=== PATIENT | male | born 1970 | race Native Hawaiian/Other Pacific Islander ===

== ENCOUNTER 2019-12-07 15:21 | Emergency (ER) | payer SELFPAY ==
[2019-12-07 18:53] LABS: Bacteria,Urine 1+ /HPF (Negative); Bilirubin,Urine NEG (Negative); Blood,Urine NEG (Negative); Color,Urine Straw (Yellow); Protein,Urine <15 mg/dL mg/dL (Negative); Urobilinogen,Urine < 2.0 mg/dL (<2.0); WBC,Urine < 1.0 /HPF (0.0-6.0)
[2019-12-07 18:59] LABS: Hematocrit 45.4 % (35.5-45.6); Mean Corpuscular HGB Conc 35 % (32-34); Mean Corpuscular Volume 88 fl (84-94); Platelet Count 237 K/mm3 (140-440); Red Blood Count 5.16 M/mm3 (3.65-5.03); Red Cell Distribution Width 13.1 % (13.2-15.2)
[2019-12-07 19:20] LABS: BUN/Creatinine Ratio 23; Blood Urea Nitrogen 16 mg/dL (9-20); Calcium 9.7 mg/dL (8.4-10.2); Hemolysis Index 21
[2019-12-07] MEDS ORDERED: SODIUM CHLORIDE 0.9% 1000 ML 1,000 ML IV ONE (19:21)
[2019-12-07] MEDS ORDERED: INSULIN REGULAR, HUMAN 100 UNITS/1 ML IV ONE (19:21)
--- NOTE | 2019-12-07 20:08 | Emergency Department Report ---
ED General Adult HPI - General Chief complaint: Pain General Stated complaint: BLOOD SUGAR HIGH Time Seen by Provider: 12/07/19 19:20 Source: patient Mode of arrival: Ambulatory Limitations: Language Barrier - History of Present Illness Initial comments: Mr. Sanchez presents for elevated BG states out of metformin for past week. He complains of some generalized malaise, bodyaches, intermittent weakness. there is no nausea /vomiting ,no chest pain ,no shortness of breath. Onset/Timin -: days(s) Location: upper extremity, lower extremity Radiation: non-radiation Severity scale (0 -10): 4 Quality: aching, other (tingling ) Consistency: intermittent Improves with: none Worsens with: other (activity ) Associated Symptoms: malaise, weakness Treatments Prior to Arrival: none - Related Data Previous Rx's Medication Instructions Recorded Last Taken Type Metformin HCl [metFORMIN] 1,000 mg PO BID #60 tablet 12/07/19 Unknown Rx Allergies Allergy/AdvReac Type Severity Reaction Status Date / Time No Known Allergies Allergy Unverified 12/07/19 15:26 ED Review of Systems ROS: Stated complaint: BLOOD SUGAR HIGH Other details as noted in HPI Constitutional: denies: chills, fever Eyes: denies: eye pain, eye discharge, vision change ENT: throat pain Respiratory: denies: cough, shortness of breath, wheezing Cardiovascular: denies: chest pain, palpitations Endocrine: no symptoms reported Gastrointestinal: denies: abdominal pain, nausea, vomiting, diarrhea Genitourinary: denies: urgency, dysuria, frequency, hematuria, discharge Musculoskeletal: other (bodyache malaise ). denies: back pain, joint swelling, arthralgia Skin: denies: rash, lesions Neurological: denies: headache, weakness, paresthesias Psychiatric: denies: anxiety, depression Hematological/Lymphatic: denies: easy bleeding, easy bruising ED Past Medical Hx - Past Medical History Previous Medical History?: Yes Hx Diabetes: Yes - Surgical History Past Surgical History?: No - Social History Smoking Status: Current Every Day Smoker Substance Use Type: Alcohol - Medications Home Medications: Home Medications Medication Instructions Recorded Confirmed Last Taken Type Metformin HCl [metFORMIN] 1,000 mg PO BID #60 tablet 12/07/19 Unknown Rx ED Physical Exam - General Limitations: Language Barrier General appearance: alert, in no apparent distress - Head Head exam: Present: atraumatic, normocephalic - Eye Eye exam: Present: normal appearance, PERRL, EOMI Pupils: Present: normal accommodation - ENT ENT exam: Present: normal orophraynx, mucous membranes moist, TM's normal bilaterally, normal external ear exam - Neck Neck exam: Present: normal inspection, full ROM. Absent: tenderness, lymphadenopathy - Respiratory Respiratory exam: Present: normal lung sounds bilaterally. Absent: respiratory distress, wheezes, stridor, chest wall tenderness - Cardiovascular Cardiovascular Exam: Present: regular rate, normal rhythm, normal heart sounds. Absent: systolic murmur, diastolic murmur, rubs, gallop - GI/Abdominal GI/Abdominal exam: Present: soft, normal bowel sounds. Absent: distended, tenderness, guarding, rebound, rigid, bruit, hernia - Rectal Rectal exam: Present: deferred - Extremities Exam Extremities exam: Present: normal inspection, full ROM, normal capillary refill. Absent: tenderness, pedal edema - Back Exam Back exam: Present: normal inspection, full ROM. Absent: tenderness, CVA tenderness (R), CVA tenderness (L) - Neurological Exam Neurological exam: Present: alert, oriented X3, CN II-XII intact, normal gait, reflexes normal. Absent: motor sensory deficit - Psychiatric Psychiatric exam: Present: normal affect, normal mood - Skin Skin exam: Present: warm, dry, intact, normal color. Absent: rash ED Course Vital Signs 12/07/19 18:06 Temperature 98.4 F Pulse Rate 87 Respiratory 18 Rate Blood Pressure 124/85 O2 Sat by Pulse 99 Oximetry ED Medical Decision Making - Lab Data Result diagrams: 12/07/19 18:40 12/07/19 18:40 Labs 12/07/19 12/07/19 12/07/19 15:39 18:40 18:40 WBC 9.2 RBC 5.16 H Hgb 16.0 H Hct 45.4 MCV 88 MCH 31 MCHC 35 H RDW 13.1 L Plt Count 237 VBG pH Sodium 133 L Potassium 4.0 Chloride 94.8 L Carbon Dioxide 21 L Anion Gap 21 BUN 16 Creatinine 0.7 L Estimated GFR > 60 BUN/Creatinine Ratio 23 Glucose 406 H POC Glucose 422 H Ketones Quantitative Calcium 9.7 Urine Color Urine Turbidity Urine pH Ur Specific [place] Urine Protein Urine Glucose (UA) Urine Ketones Urine Blood Urine Nitrite Urine Bilirubin Urine Urobilinogen Ur Leukocyte Esterase Urine WBC (Auto) Urine RBC (Auto) Urine Bacteria (Auto) 12/07/19 12/07/19 12/07/19 18:40 18:40 Unknown WBC RBC Hgb Hct MCV MCH MCHC RDW Plt Count VBG pH 7.352 Sodium Potassium Chloride Carbon Dioxide Anion Gap BUN Creatinine Estimated GFR BUN/Creatinine Ratio Glucose POC Glucose Ketones Quantitative Small Calcium Urine Color Straw Urine Turbidity Clear Urine pH 5.0 Ur Specific [place] 1.028 Urine Protein <15 mg/dl Urine Glucose (UA) >=500 Urine Ketones Tr Urine Blood Neg Urine Nitrite Neg Urine Bilirubin Neg Urine Urobilinogen < 2.0 Ur Leukocyte Esterase Neg Urine WBC (Auto) < 1.0 Urine RBC (Auto) 2.0 Urine Bacteria (Auto) 1+ - Medical Decision Making Symptoms are improved body aches are relieved, patient tolerating p.o. intake without nausea /vomiting. there is no fever /chills, no chest pain, no nausea/ vomiting, no back pain, no shortness of breath. Plan I will refill metformin p.o. bib daily, patient will follow up with primary care at [facility]. Patient is currently alert oriented x3 ambulatory with steady gait DC to home in stable condition. Blood glucose blood glucose at this time is 284mg/dl. Critical care attestation.: If time is entered above; I have spent that time in minutes in the direct care of this critically ill patient, excluding procedure time. ED Disposition Clinical Impression: Hyperglycemia due to type 2 diabetes mellitus Qualifiers: Diabetes mellitus nursing home insulin use: with nursing home use Qualified Code(s): E11.65 - Type 2 diabetes mellitus with hyperglycemia Disposition: DC-01 TO HOME OR SELFCARE Is pt being admited?: No Does the pt Need Aspirin: No Condition: Stable Instructions: Diabetes Mellitus Type 2 in Adults (ED) Prescriptions: Metformin HCl [metFORMIN] 1,000 mg PO BID #60 tablet Referrals: PRIMARY CARE, [Primary Care Provider] - 3-5 Days Forms: Work/School Release Form(ED) Time of Disposition: 21:16
[2019-12-07 22:42] VITALS: BP 115/77
== END 2019-12-07 23:28 | disposition home or self-care (01) ==
LOC: ED 15:21
DX: E11.65 Type 2 diabetes mellitus with hyperglycemia (principal); F17.200 Nicotine dependence, unspecified, uncomplicated
CPT/HCPCS: 36415; 80048; 81001; 82010; 82805; 82962; 85027; 96361; 96374; 99284; J7030; J1815

== ENCOUNTER 2020-03-03 22:03 | Emergency (ER) | payer SELFPAY ==
[2020-03-04] MEDS ORDERED: GABAPENTIN 300 MG CAP PO ONE (00:22)
--- NOTE | 2020-03-04 00:37 | Emergency Department Report ---
ED Extremity Problem HPI - General Chief complaint: Extremity Injury, Lower Stated complaint: SUGAR UP/LEG PAIN Source: patient Mode of arrival: Ambulatory Limitations: Language Barrier - History of Present Illness Initial comments: Patient is a 49-year-old male with a history of xdq-xpbbjlz-dlfieessx diabetes who takes metformin 1000 mg twice a day presents to the ED with complaint of acute onset persistent bilateral upper and lower extremity tingling and burning sensation for the last 2 weeks worse in the last 2 days. Patient states that he is not able to sleep because of these sensations of tingling in his feet and his leg. Patient denies dizziness, chest pain, shortness of breath, back pain, hematuria, dysuria, abdominal pain, fever, chills, cough, change in vision, syncope, head or neck injuries, cough or sore throat. MD Complaint: extremity pain (bilateral lower and upper extremity tingling and burning sensation) -: Sudden, week(s) (2) Location: upper extremity (bilaterally), bilateral lower extremity History of Same: No -: Yes myalgia, Yes arthralgia Radiation: other (diffuse) Severity scale (0 -10): 7 Quality: burning, aching, sharp, other (tingling) Consistency: constant Improves with: nothing Worsens with: nothing Associated Symptoms: denies other symptoms, myalgias, arthralgias. denies: chest pain, shortness of breath, fever, rash - Related Data Previous Rx's Medication Instructions Recorded Last Taken Type Metformin HCl [metFORMIN] 1,000 mg PO BID #60 tablet 12/07/19 Unknown Rx Gabapentin 300 mg PO Q8HR PRN #90 capsule 03/04/20 Unknown Rx Naproxen 500 mg PO Q12H PRN #30 tablet 03/04/20 Unknown Rx Allergies Allergy/AdvReac Type Severity Reaction Status Date / Time No Known Allergies Allergy Unverified 12/07/19 15:26 ED Review of Systems ROS: Stated complaint: SUGAR UP/LEG PAIN Other details as noted in HPI Constitutional: denies: chills, fever Eyes: denies: eye pain, eye discharge, vision change ENT: denies: ear pain, throat pain Respiratory: denies: cough, shortness of breath, wheezing Cardiovascular: denies: chest pain, palpitations Endocrine: no symptoms reported Gastrointestinal: denies: abdominal pain, nausea, diarrhea Genitourinary: denies: urgency, dysuria Musculoskeletal: arthralgia (Bilateral upper and lower extremity burning sensation and tingling), myalgia. denies: back pain, joint swelling Skin: denies: rash, lesions Neurological: denies: headache, weakness, paresthesias Psychiatric: denies: anxiety, depression Hematological/Lymphatic: denies: easy bleeding, easy bruising ED Past Medical Hx - Past Medical History Hx Diabetes: Yes - Social History Smoking Status: Never Smoker Substance Use Type: None - Medications Home Medications: Home Medications Medication Instructions Recorded Confirmed Last Taken Type Metformin HCl [metFORMIN] 1,000 mg PO BID #60 tablet 12/07/19 Unknown Rx Gabapentin 300 mg PO Q8HR PRN #90 capsule 03/04/20 Unknown Rx Naproxen 500 mg PO Q12H PRN #30 tablet 03/04/20 Unknown Rx ED Physical Exam - General Limitations: Language Barrier General appearance: alert, in no apparent distress - Head Head exam: Present: atraumatic, normocephalic, normal inspection - Eye Eye exam: Present: normal appearance, PERRL, EOMI Pupils: Present: normal accommodation - ENT ENT exam: Present: normal exam, normal orophraynx, mucous membranes moist, TM's normal bilaterally, normal external ear exam - Neck Neck exam: Present: normal inspection - Respiratory Respiratory exam: Present: normal lung sounds bilaterally. Absent: respiratory distress, wheezes, rhonchi, stridor, chest wall tenderness, accessory muscle use, decreased breath sounds, prolonged expiratory - Cardiovascular Cardiovascular Exam: Present: regular rate, normal rhythm, normal heart sounds. Absent: systolic murmur, diastolic murmur, rubs, gallop - GI/Abdominal GI/Abdominal exam: Present: soft, normal bowel sounds. Absent: distended, tenderness, guarding, rebound, organomegaly - Extremities Exam Extremities exam: Present: normal inspection, full ROM, normal capillary refill. Absent: tenderness, pedal edema, joint swelling - Back Exam Back exam: Present: normal inspection, full ROM. Absent: tenderness, CVA tenderness (R), CVA tenderness (L), muscle spasm, paraspinal tenderness, vertebral tenderness - Neurological Exam Neurological exam: Present: alert, oriented X3, CN II-XII intact, normal gait, reflexes normal - Psychiatric Psychiatric exam: Present: normal affect, normal mood - Skin Skin exam: Present: warm, dry, intact, normal color. Absent: rash ED Course Vital Signs 03/03/20 22:20 Temperature 98.4 F Pulse Rate 88 Respiratory 22 Rate Blood Pressure 122/79 O2 Sat by Pulse 97 Oximetry ED Medical Decision Making - Medical Decision Making This is a 49-year-old male with a history of nil-umjfbgj-vfblzuobc diabetes who takes metformin 1000 mg twice a day presents to the ED with complaint of acute onset persistent bilateral upper and lower extremity tingling and burning sensation for the last 2 weeks worse in the last 2 days. Patient states that he is not able to sleep because of these sensations of tingling in his feet and his leg. In the ED, patient is alert and oriented x3 and is not in distress. Patient was treated for neuropathic pain based on history and physical exam. Patient ybzyj-jk-czko glucose was 293 mg/dL. Patient was discharged home on medications and advised to continue taking his diabetic medication and to follow-up with his primary care physician in 7 to 10 days for reevaluation. Patient was advised to return to the ED immediately if symptoms get worse. - Differential Diagnosis Diabetic neuropathy; Chronic osteoathritis; Muscle strain Critical care attestation.: If time is entered above; I have spent that time in minutes in the direct care of this critically ill patient, excluding procedure time. ED Disposition Clinical Impression: Diabetic neuropathy, type II diabetes mellitus Qualifiers: Diabetes mellitus intermediate card tender insulin use: without intermediate card tender use Qualified Code(s): E11.40 - Type 2 diabetes mellitus with diabetic neuropathy, unspecified Disposition: DC-01 TO HOME OR SELFCARE Is pt being admited?: No Does the pt Need Aspirin: No Condition: Stable Instructions: Diabetes Mellitus Type 2 in Adults (ED), Diabetic Neuropathy (ED) Additional Instructions: Marcela sntomas se deben a rubio afeccin llamada neuropata diabtica que causa sensaciones de ardor y hormigueo en los brazos y las piernas, especialmente en personas cuya glucosa en eulogio no est elena controlada. [place] medicamentos con alimentos, yousif muchos lquidos y rosemarie un seguimiento con shepard mdico de atencin primaria en 5 a 7 schneider para la reevaluacin. Regrese al servicio de urgencias de inmediato si los sntomas empeoran Prescriptions: Gabapentin 300 mg PO Q8HR PRN #90 capsule PRN Reason: neuropathy Naproxen 500 mg PO Q12H PRN #30 tablet PRN Reason: Pain , Severe (7-10) Referrals: TRISTAN SMALL MD [Staff Physician] - 3-5 Days Time of Disposition: 00:39 Print Language: CHILEAN
[2020-03-04 01:05] VITALS: BP 120/70
== END 2020-03-04 01:03 | disposition home or self-care (01) ==
LOC: ED 22:03
DX: E11.40 Type 2 diabetes mellitus with diabetic neuropathy, unspecified (principal)
CPT/HCPCS: 82962

== ENCOUNTER 2021-03-13 06:25 | Emergency (ER) | payer SELFPAY ==
[2021-03-13] MEDS ORDERED: fentaNYL 100 MCG/2 ML INJ IV ONE (06:28)
[2021-03-13] MEDS ORDERED: ONDANSETRON 4 MG/2 ML INJ IV ONE (06:28)
[2021-03-13] MEDS ORDERED: TETANUS,DIPH,PERTUSS(ACELL) VACCINE 0.5 ML SYRINGE IM ONE (06:28)
--- NOTE | 2021-03-13 06:34 | Emergency Department Report ---
HPI - General Time Seen by Provider: 03/13/21 06:26 - HPI HPI: Room 5 The patient is a 50-year-old male present with a chief complaint of finger amputation. The patient states 20 minutes prior to arrival he injured his right ring finger while working on the hitch of a truck. Patient brought the amputated finger with him. Patient gives his pain a score of 8/10 ED Past Medical Hx - Past Medical History Hx Diabetes: Yes - Surgical History Past Surgical History?: No - Family History Family history: no significant - Social History Smoking Status: Never Smoker Substance Use Type: None (Denies illicit drug), Alcohol - Medications Home Medications: Home Medications Medication Instructions Recorded Confirmed Last Taken Type Metformin HCl [metFORMIN] 1,000 mg PO BID #60 tablet 12/07/19 Unknown Rx Gabapentin 300 mg PO Q8HR PRN #90 capsule 03/04/20 Unknown Rx Naproxen 500 mg PO Q12H PRN #30 tablet 03/04/20 Unknown Rx ED Review of Systems ROS: Stated complaint: LT FINGER INJURY Other details as noted in HPI Constitutional: no symptoms reported Eyes: denies: eye pain ENT: denies: throat pain Respiratory: no symptoms reported Cardiovascular: denies: chest pain Endocrine: no symptoms reported Gastrointestinal: denies: abdominal pain Genitourinary: denies: dysuria Musculoskeletal: arthralgia Skin: other (Finger amputation) Neurological: denies: headache Physical Exam - Physical Exam Physical Exam: GENERAL: The patient is well-developed well-nourished male sitting on stretcher holding right hand appearing to be in mild discomfort. [] HEENT: Normocephalic. Atraumatic. Extraocular motions are intact. Patient has moist mucous membranes. NECK: Supple. Trachea midline CHEST/LUNGS: There is no respiratory distress noted. HEART/CARDIOVASCULAR: Regular. There is no tachycardia. 2+ right radial pulse SKIN: There is amputation of the distal right ring finger right at the DIP. There appears to be exposed bone. NEURO: The patient is awake, alert, and oriented. The patient is cooperative. The patient has no focal neurologic deficits. The patient has normal speech and gait. MUSCULOSKELETAL: There is no evidence of acute injury. ED Course - Consultations Consultation #1: 03/13/21 06:50 [facility] transfer line called 03/13/21 06:56 Case discussed with [facility] transfer line-awaiting hand specialist. Will call back 03/13/21 08:15 [facility] states they still have not been able to get in contact with the hand specialist 03/13/21 09:21 [facility] calls and states that still have not been able to contact the hand specialist. States they are still trying 03/13/21 09:47 Received call back from [facility] Case discussed with hand specialist Dr. Henderson. States will accept patient in transfer to the ED. Will not be able to reattach distal fingertip Consultation #2: 03/13/21 08:15 [facility] transfer line called 03/13/21 08:[address] [place] [address] states they do not have a hand surgeon Consultation #3: 03/13/21 08:32 [facility] transfer line called - Nerve Block Consent Obtained: verbal consent Time Out Performed: Yes Local Anesthetic Used: Marcaine 0.5% Amount of anesthesia used: 7 (Marcaine 0.5% was mixed with lidocaine 1% plain in a 1:1 ratio) Side: right Nerve Blocks: digital (Right ring finger) Procedure Successful: Yes Complications: none Patient Tolerated Procedure: well, no complications ED Medical Decision Making - Radiology Data Radiology results: report reviewed (Right ring finger x-ray), image reviewed (Right ring finger x-ray) interpreted by me: Right ring finger [place]-ray[place] [address] XRay Report Signed Patient: PAYTON SARMIENTO MR#: [id number] : 1970 Acct:[id number] Age/Sex: 50 / M ADM Date: 03/13/21 Loc: ED Att ending Dr: Ordering Physician: PATSY WHITE MD Date of Service: 03/13/21 Procedure(s): XR finger(s) 2+V LT Accession Number(s): [id number] cc: PATSY WHITE MD Fluoro Time In Minutes: LEFT RING FINGER 3 VIEWS INDICATION / CLINICAL INFORMATION: Amputation of distal ring finger COMPARISON: None available. FINDINGS: BONES and JOINT(S): There has been amputation of the tip of the ring finger with an acute nondisplaced fracture of the distal third of the distal phalanx of the ring finger. No dislocation. SOFT TISSUES: Indication of the tip of the ring finger with diffuse edema along the finger and scattered punctate radiopaque foreign bodies. ADDITIONAL FINDINGS: None. IMPRESSION: Partial amputation of the left ring finger with an acute fracture as above. Signer Name: Eyal Villa MD Signed: 03/13/2021 6:55 AM Workstation Name: [id number] Transcribed By: KEHINDE Dictated By: Eyal Villa MD Electronically Authenticated By: Eyal Villa MD Signed Date/Time: 03/13/21654 DD/ 2 TD/TT: Print Cancel - Differential Diagnosis Finger amputation Critical care attestation.: If time is entered above; I have spent that time in minutes in the direct care of this critically ill patient, excluding procedure time. ED Disposition Clinical Impression: Partial traumatic transphalangeal amputation of right ring finger Disposition: DC/TX-70 ANOTHER TYPE HLTHCARE Is pt being admited?: No Does the pt Need Aspirin: No Condition: Fair Referrals: PRIMARY CAREMD [Primary Care Provider] - 3-5 Days Time of Disposition: 09:48 (Awaiting transport)
--- NOTE | 2021-03-13 06:59 | XRay Report ---
LEFT RING FINGER 3 VIEWS INDICATION / CLINICAL INFORMATION: Amputation of distal ring finger COMPARISON: None available. FINDINGS: BONES and JOINT(S): There has been amputation of the tip of the ring finger with an acute nondisplace d fracture of the distal third of the distal phalanx of the ring finger. No dislocation. SOFT TISSUES: Indication of the tip of the ring finger with diffuse edema along the finger and scatte red punctate radiopaque foreign bodies. ADDITIONAL FINDINGS: None. IMPRESSION: Partial amputation of the left ring finger with an acute fracture as above. Signer Name: Eyal Villa MD Signed: 03/13/2021 6:55 AM Workstation Name: [id number]
[2021-03-13] MEDS ORDERED: SODIUM CHLORIDE 0.9% 1000 ML 1,000 ML IV ONE (08:08)
[2021-03-13] MEDS ORDERED: LIDOCAINE (1%) 10 MG/1 ML VIAL 20 ML MDV INFILTRATI ONE (09:46)
[2021-03-13] MEDS ORDERED: HYDROmorphone 1 MG/1 ML INJ IV ONE (09:47)
[2021-03-13 09:58] VITALS: BP 112/75
[2021-03-13] MEDS ORDERED: BUPIVACAINE/PF (0.5%) 5 MG/1 ML 10 ML VIAL INFILTRATI NR (10:00)
== END 2021-03-13 11:19 | disposition other institution (70) ==
LOC: ED 06:25
DX: S68.625A Partial traumatic transphalangeal amputation of left ring finger, initial encounter (principal); E11.9 Type 2 diabetes mellitus without complications; Z72.89 Other problems related to lifestyle; Z79.899 Other long term (current) drug therapy; W22.8XXA Striking against or struck by other objects, initial encounter; Y93.89 Activity, other specified; Y92.89 Other specified places as the place of occurrence of the external cause; Y99.8 Other external cause status
CPT/HCPCS: 64450; 73140; 82962; 90471; 90715; 96361; 96365; 96375; 99285; J0690; J1170; J2405; J3010; J7030